=== PATIENT | female | born 1995 | race Two or more races ===

== ENCOUNTER 2020-10-06 16:51 | Emergency (ER) | payer SELFPAY ==
[~2020-10-06] VITALS: Ht 157.5 cm; Wt 86.0 kg
[~2020-10-06 16:51] MED LIST: ACET-704 PO; IBUP-1060 PO; LABE100T5 PO
[2020-10-06 18:00] VITALS: BP 123/69
--- NOTE | 2020-10-06 18:58 | RAD ---
Examination: FOOT RIGHT 3V History: Reason: fell right foot pain / Spl. Instructions: / History: Comparison/Correlation: None Findings: 3V right foot x-rays are performed. Joint spaces are normal. No fracture or bone destruction. Soft tissues are unremarkable. Impression: No suspicious process. Electronically signed by: Hieu Watkins MD (10/06/2020 6:55 PM) [facility]
--- NOTE | 2020-10-06 19:18 | PHYS DOC ---
Past Medical History Past Medical History: No Pertinent History Past Surgical History: No Surgical History Smoking Status: Former Smoker Alcohol Use: None General Adult EDM: Chief Complaint: MECHANICAL FALL HPI: HPI: Patient is a 25 year old female who presents to the ED today complaining of moderate pain to the right foot worse on the right great toe that began yesterday after she fell down 2 steps. Patient denies any loss of consciousness, denies hitting her head on the ground. States most of the pain is on putting pressure on the right great toe. She is also complaining of a rash that she noted yesterday throughout her body. Denies any known cause for the rash. Review of Systems: Review of Systems: Constitutional: Denies fever or chills. [] Musculoskeletal: Reports right foot pain denies back pain Integument: Reports rash Neurologic: Denies headache, focal weakness or sensory changes. [] Psychiatric: Denies depression or anxiety. [] Heart Score: Risk Factors: Risk Factors: DM, Current or recent (<one month) smoker, HTN, HLP, family history of CAD, obesity. Risk Scores: Score 0 - 3: 2.5% MACE over next 6 weeks - Discharge Home Score 4 - 6: 20.3% MACE over next 6 weeks - Admit for Clinical Observation Score 7 - 10: 72.7% MACE over next 6 weeks - Early Invasive Strategies Allergies: Allergies: Allergies Coded Allergies Type Severity Reaction Last Updated Verified No Known Drug Allergies 10/09/15 No Physical Exam: PE: Constitutional: Well developed, well nourished, no acute distress, non-toxic appearance. [] Skin: Warm, dry, mild amount of erythematous papular rash on the abdomen and small amount on bilateral lower extremities Back: No tenderness, no CVA tenderness. [] Extremities: Right foot with no obvious deformity, mild swelling noted on the right great toe with bruising. Full range of motion to the right foot. Limited range of motion to the right great toe due to pain. +2 right pedal pulse. Cap refill less than 2 seconds the right toes. Sensation intact. Neurologic: Alert and oriented X 3, normal motor function, normal sensory function, no focal deficits noted. [] Psychologic: Affect normal, judgement normal, mood normal. [] Current Patient Data: Labs: Laboratory Tests Test 10/06/20 18:10 POC Urine HCG, Qualitative Hcg negative (Negative) Vital Signs: Vital Signs Date Time Temp Pulse Resp B/P (MAP) Pulse Ox O2 Delivery O2 Flow Rate FiO2 10/06/20 18:00 98.7 97 12 123/69 (87) 98 Room Air 98.7 EKG: EKG: [] Radiology/Procedures: Radiology/Procedures: []PROCEDURE: FOOT RIGHT 3V Examination: FOOT RIGHT 3V History: Reason: fell right foot pain / Spl. Instructions: / History: Comparison/Correlation: None Findings: 3V right foot x-rays are performed. Joint spaces are normal. No fracture or bone destruction. Soft tissues are unremarkable. Impression: No suspicious process. Electronically signed by: Hieu Salinas MD (10/06/2020 6:55 PM) [facility] DICTATED and SIGNED BY: HIEU SALINAS MD DATE: 10/06/20 [id number] 0 Course & Med Decision Making: Course & Med Decision Making Pertinent Labs and Imaging studies reviewed. (See chart for details) This is a 25-year-old female patient presenting to the ED today with a right foot pain that began yesterday after she fell down 2 steps. Right foot x-rays interpreted by radiologist are negative for any acute findings. Discharge to home. Ice elevation encouraged. OTC pain relievers. Follow-up with Ortho. She also has contact dermatitis rash. Given prescription for prednisone which will help with the rash as well as pain to her foot. Benadryl as well as Pepcid also recommended. Follow-up with PCP for this in 2 weeks Timoteo Disclaimer: Timoteo Disclaimer: This electronic medical record was generated, in whole or in part, using a voice recognition dictation system. Departure Departure Impression: Primary Impression: Right foot sprain Qualified Codes: S93.601A - Unspecified sprain of right foot, initial encounter Additional Impressions: Fall down stairs Qualified Codes: W10.8XXA - Fall (on) (from) other stairs and steps, initial encounter Contact dermatitis Qualified Codes: L25.9 - Unspecified contact dermatitis, unspecified cause Disposition: 01 DC HOME SELF CARE/HOMELESS Condition: STABLE Referrals: NO PCP (PCP) YOSVANY SOLO MD follow up in 2 weeks for right foot pain Patient Instructions: Contact Dermatitis, [id number], Foot Sprain-Brief Additional Instructions: You were evaluated in the emergency room for right foot sprain as well as rash. Your right foot x-rays are negative for any acute findings. Take the prescribed medication as ordered. Follow-up with your own doctor in 1 to 2 weeks Scripts Cetirizine Hcl (ZYRTEC) 10 Mg Tablet 1 TAB PO DAILY, #30 TAB 2 Refills Prov: JLUIS ASENCIO APRN 10/06/20 Methylprednisolone (MEDROL) 4 Mg Tab.ds.pk 1 PKG PO UD, #1 PKG Prov: JLUIS ASENCIO APRN 10/06/20 JLUIS ASENCIO APRN Oct 06, 2020 19:18
[2020-10-06] MEDS ORDERED: METH4TAB2 PO (19:45)
[2020-10-06] MEDS ORDERED: CETI10TA74 PO (19:45)
== END 2020-10-06 20:05 | disposition home or self-care (01) ==
LOC: ER 16:51
DX: S93.601A Unspecified sprain of right foot, initial encounter (principal); L25.9 Unspecified contact dermatitis, unspecified cause; Z87.891 Personal history of nicotine dependence; W10.8XXA Fall (on) (from) other stairs and steps, initial encounter; Y93.89 Activity, other specified; Y92.89 Other specified places as the place of occurrence of the external cause; Y99.8 Other external cause status
CPT/HCPCS: 73630; 81025; 99284